=== PATIENT | female | born 1995 ===

== ENCOUNTER → 2022-05-13 16:15 | Outpatient (CLI) | payer OTHER, SELFPAY ==
[2022-05-13 17:06] LABS: COVID19 -Nasal RAPID Negative (Negative)
== END ==
PROVIDERS: PCP Physician Assistant; Visit Provider Obstetrics & Gynecology
DX: Z20.822 Contact with and (suspected) exposure to COVID-19 (principal); Z01.812 Encounter for preprocedural laboratory examination
CPT/HCPCS: 87635

== ENCOUNTER 2022-05-14 09:17 | Day surgery (SDC) | payer OTHER, SELFPAY ==
[2022-05-13 13:15] VITALS: BMI 26.6
[2022-05-14] VITALS (7 sets, daily range): BP systolic 114–128; BP diastolic 71–81; PULSE 67–85; RESP 12–18; TEMP 36.1–36.6; O2SAT 99–100; BMI 26.6
--- NOTE | 2022-05-14 | PATH_ITS ---
[facility] Accession Number: [id number] . 01 Material submitted: . fallopian tube - BILATERAL FALLOPIAN TUBES . 01 Diagnosis: Bilateral Fallopian Tubes, Bilateral Salpingectomies: Complete cross-sections of bilateral fimbriated fallopian tubes. Negative for atypia or malignancy. MRV 05/19/2022 1349 Local . 01 Electronically signed: . Tiffanie Silva MD, Pathologist NPI- [id number] . 01 Gross description: . Received in formalin, labeled with the patient's name and designated 1. Bilateral fallopian tubes, are bilateral undesignated fimbriated fallopian tube segments. The first fallopian tube is 6.5 cm long by 0.5 cm in diameter with a purple-mcdaniel, hyperemic, convoluted outer surface and attached open fimbriae. The second fallopian tube is 5.5 cm long by 0.6 cm in diameter with a purple-uriostegui, hyperemic outer surface and attached open fimbriae. No additional lesions are identified. Gut Cleaner sections are submitted as follows: A1: Gut Cleaner first fallopian tube with entire fimbriae. A2: Gut Cleaner second fallopian tube with entire fimbriae. (ANALY:[id number]) /DAVID 05/15/2022 1443 Local . 01 Pathologist provided ICD-10: Z30.2 . 01 CPT . 757055 Specimen Comment: A courtesy copy of this report has been sent to [phone] Performed at: 01 [facility] [address] [place] [address] [id number] MD Abdullahi Chiang MD Phone: [phone]
--- NOTE | 2022-05-14 09:55 | PM.GYNHP.1 ---
History of Present Illness History of Present Illness Reason for admission: other Narrative: Meche Goyal is a 26 year old P2 with a history of delivery due to severe preeclampsia with both pregnancies, presenting for a scheduled laparoscopic bilateral salpingectomy for permanent sterilization. She reports feeling well today with no symptoms or concerns, and denies any changes in her health history. We discussed that this is permanent sterilization with IVF as the only option for further fertility, and she reports I have never been so sure about anything in my life. We discussed risks of surgery including damage to intraabdominal organs such as bowel and bladder, infection, and hemorrhage. We reviewed options such as the IUD and nexplanon. The patient vocalized understanding of the risks and benefits, informed consent was obtained, and consents were signed. [facility] Medical History delivery delivered Hyperlipidemia Preeclampsia Social History household members: spouse Smoking Status: Never smoker alcohol intake: never Meds Home Medications and Allergies Home Medications Medication Instructions Recorded Confirmed Type meloxicam 7.5 mg tablet 7.5 mg PO DAILY 04/02/22 05/14/22 History Allergies Allergy/AdvReac Type Severity Reaction Status Date / Time No Known Drug Allergies Allergy Verified 05/14/22 09:14 Review of Systems Constitutional Constitutional: Reports system reviewed and no additional complaints, except as documented Cardiovascular Cardiovascular: Reports system reviewed and no additional complaints, except as documented Respiratory Respiratory: Reports system reviewed and no additional complaints, except as documented Gastrointestinal Gastrointestinal: Reports system reviewed and no additional complaints, except as documented Genitourinary Genitourinary: Reports system reviewed and no additional complaints, except as documented Exam Vital Signs (past 8 hours): VSS, test negative Const General: cooperative, healthy appearing, comfortable and well groomed Resp Effort & Inspection: normal respiratory effort Auscultation: clear to auscultation bilaterally Cardio Rate: regular rate Rhythm: regular rhythm Assessment & Plan Assessment and plan (1) Admission for sterilization: Problem details: This patient is admitted for scheduled laparoscopic bilateral salpingectomy. Risks and benefits were discussed as above, and informed consent was obtained. We discussed post procedure precautions and activity restrictions, along with incision care. A preop covid test and test were negative. Plan is to proceed with scheduled surgery. Status: Acute Time Spent With Patient Critical Care time: I spent a total of [] minutes of critical care time on this patient's care today; this time is exclusive of procedural time.
[2022-05-14] MEDS: LACTATED RINGERS 1,000 ML 100 ML IV (10:04)
--- NOTE | 2022-05-14 10:40 | SUR.OPER ---
Lithotomy on padded OR bed, head on pillow, arms secured on padded arm boards at <90 degrees abduction. Legs secured in padded yellow fins stirrups.
[2022-05-14] MEDS: BUPIVACAINE 0.25% (PF) 30 ML, EPINEPHrine 0.15 MG INJ (10:59)
--- NOTE | 2022-05-14 11:18 | PM.OP.1 ---
Operative Date/Time/Diagnoses Date of procedure: 05/14/22 Time of procedure: 10:00 Pre-op diagnosis: desires permanent sterilization Post-op diagnosis: same Procedure & Clinicians Procedure: laparoscopic bilateral salpingectomy and lysis of adhesions Same procedure as scheduled: Yes Indications: desires permanent sterilization Surgeon: Summer Bah Search And Rescue Officer: Rema Lynch Anesthesia Type: General Operative Notes Findings: Normal ovaries and fallopian tubes, suspected small intramural uterine fibroid. Omental adhesions to anterior abdominal wall, vertically at site consistent with prior peritoneal incision during CS. Closure Type: primary Specimen(s): other (bilateral fallopian tubes) Estimated Blood Loss (mL): 5 Procedure in detail: After proper consents were obtained, the patient was taken to the operating room. General anesthesia was induced, and she was placed in the dorsal lithotomy position and prepped and draped in the normal sterile fashion. A goldstein catheter was placed, and a speculum placed in the patient's vagina. A single tooth tenaculum was applied to the anterior lip of the cervix, and hegar dilators used to dilate the cervix to 6mm with gentle pressure. A uterine manipulator was gently inserted and the balloon inflated to 5ccs. The tenaculum and speculum were removed from the vagina. Attention was then turned to the abdomen, where 1cc of .25% marcaine with epinephrine was used to infiltrate the skin just below the umbilicus. A scalpel was used to make a 5mm incision, the anterior abdominal wall was elevated, and a Veress needle gently inserted into the abdomen. Intraperitoneal placement was confirmed with a drop of normal saline passed through the veress needle with gravity, and CO2 used to insufflate the abdomen to 15mmHg. A 5mm trocar and sleeve were placed into the abdomen through this incision, and intraperitoneal placement was confirmed visually with insertion of the laparoscope. Abdominal survey at this time was normal except for the omental adhesions noted above, and lateral ports were placed under direct visualization. These were placed on the left and right, 8cm from the umbilicus and after infiltration of 1mm of local anesthetic as above. Attention was turned to the omental adhesion, which was carefully inspected and found to contain no additional structures. The Powerseal device was used to clamp, cauterize and cut the omentum as close to the abdominal wall as possible, with good hemostasis achieved. This allowed visualization to complete the scheduled procedure. The patient was placed in trendelenburg position, and a blunt probe used to gently push the bowel out of the pelvis. The ovaries and fallopian tubes appeared normal bilaterally, and the contour of the uterus was suspicious for an intramural fibroid. A atraumatic grasper was used to elevate the left fallopian tube, and a powerseal device was used to serial clamp, cauterize and cut along the mesosalpinx and at the uterine cornua. This tube was removed from the abdomen, and the same procedure was performed on the right without complication. This tube was also removed from the abdomen. A careful repeat survey was performed, with hemostasis at all of the above sites assured. The laparoscope was removed from the abdomen, the insufflating gas allowed to escape, and the ports removed. The skin at all 3 incisions was closed with 4-0 biosyn, then covered with steri strips and bandages. The goldstein catheter was removed from the bladder, and the uterine manipulator was removed. The patient tolerated the procedure well, all counts were correct, and a test was negative on admission. The patient was transported to PACU in stable condition. Complications: none Post-operative Condition: stable Disposition: PACU Plan for aftercare: Routine postop care
[2022-05-14] MEDS: OXYCODONE/ACETAMINOPHEN 5/325 TABLET 1 TAB PO (11:48)
--- NOTE | 2022-05-14 12:15 | SUR.PHASEII ---
Discharge instructions reviewed with patient and time allowed for questions. Pt denies any distress, reports pain as tolerable, dressings C/D/I. Pt left unit via w/c with all personal belongings to ER exit where spouse will transport pt home.
== END 2022-05-14 12:23 | disposition home or self-care (01) ==
PROVIDERS: PCP Physician Assistant; Referring Provider Obstetrics & Gynecology; Visit Provider Obstetrics & Gynecology
PROC: 0UT74ZZ Resection of Bilateral Fallopian Tubes, Percutaneous Endoscopic Approach (ICD-10-PCS; CPT 58661; principal; 2022-05-14 10:45)
DX: Z30.2 Encounter for sterilization (principal); K66.0 Peritoneal adhesions (postprocedural) (postinfection)
CPT/HCPCS: 58661; 81025; J0171; J1100; J1885; J2250; J2405; J2704; J3010